=== PATIENT | male | born 1970 | race Two or more races ===

== ENCOUNTER 2024-10-26 00:58 | Emergency (ER) | payer MEDICAID, OTHER ==
[~2024-10-26] VITALS: Ht 170.2 cm; Wt 104.5 kg
[2024-10-26 01:00] VITALS: BP 163/100; PULSE 103; RESP 18; TEMP 97.9; O2SAT 98
== END 2024-10-26 01:30 | disposition left against medical advice (07) ==
LOC: EMS 01:00
DX: R05.9 Cough, unspecified (principal); R07.89 Other chest pain; Z53.21 Procedure and treatment not carried out due to patient leaving prior to being seen by health care provider
CPT/HCPCS: 71045; 93041